=== PATIENT | female | born 1995 | race American Indian/Alaskan Native ===

== ENCOUNTER 2020-07-11 12:39 | Emergency (ER) | payer SELFPAY ==
--- NOTE | 2020-07-11 12:54 | Event Note ---
ED Screening Note ED Screening Note: vag bleed in preg This initial assessment/diagnostic orders/clinical plan/treatment(s) is/are subject to change based on patients health status, clinical progression and re- assessment by fellow clinical providers in the ED. Further treatment and workup at subsequent clinical providers discretion. Patient/guardian urged not to elope from the ED as their condition may be serious if not clinically assessed and managed. Initial orders include: emir erwin
--- NOTE | 2020-07-11 12:57 | Emergency Department Report ---
ED HPI - General Chief complaint: Vaginal Bleeding Stated complaint: 7WKS PREG; VAGINAL BLEEDING Time Seen by Provider: 07/11/20 12:39 Source: patient, RN notes reviewed Limitations: No Limitations - History of Present Illness Initial comments: This is a 25-year-old female nontoxic, well nourished in appearance, no acute signs of distress presents to the ED with c/o of vaginal bleeding x1 day. Patient stated she is about 9 weeks . Patient stated she noticed some spotting this morning. Patient denies any abdominal or pelvic pain. Patient denies any vaginal discharge or foul odor. Patient denies any nausea, vomiting, chest pain, shortness of breathe, fever, chills, headache, stiff neck, numbness, tingling. Patient denies any urinary symptoms. Patient denies any allergies or PMH. MD Complaint: vaginal bleeding -: This morning Radiation: none Severity scale (0 -10): 0 Improves with: none Worsens with: none Associated symptoms: vaginal bleeding. denies: nausea/vomiting, vaginal discharge, abdominal pain, dysuria, headache, vision changes, malaise, dysparuenia, rash, seizure, shortness of breath, syncope, weakness Vaginal bleeding: light :: Yes Number of weeks : 9 Pre-kelly care: none - Related Data Home Medications Medication Instructions Recorded Confirmed Last Taken No Known Home Medications [No 11/22/15 11/22/15 Unknown Reported Home Medications] Allergies Allergy/AdvReac Type Severity Reaction Status Date / Time No Known Allergies Allergy Verified 04/03/13 19:06 ED Review of Systems ROS: Stated complaint: 7WKS PREG; VAGINAL BLEEDING Other details as noted in HPI Comment: All other systems reviewed and negative Constitutional: denies: chills, fever Eyes: denies: eye pain, eye discharge, vision change ENT: denies: ear pain, throat pain Respiratory: denies: cough, shortness of breath, wheezing Cardiovascular: denies: chest pain, palpitations Endocrine: no symptoms reported Gastrointestinal: denies: abdominal pain, nausea, diarrhea Genitourinary: abnormal menses. denies: urgency, dysuria, discharge Musculoskeletal: denies: back pain, joint swelling, arthralgia Skin: denies: rash, lesions Neurological: denies: headache, weakness, paresthesias Psychiatric: denies: anxiety, depression Hematological/Lymphatic: denies: easy bleeding, easy bruising ED Past Medical Hx - Social History Smoking Status: Never Smoker Substance Use Type: None - Medications Home Medications: Home Medications Medication Instructions Recorded Confirmed Last Taken Type No Known Home Medications [No 11/22/15 11/22/15 Unknown History Reported Home Medications] ED Physical Exam - General General appearance: alert, in no apparent distress - Head Head exam: Present: atraumatic, normocephalic - Eye Eye exam: Present: normal appearance - Neck Neck exam: Present: normal inspection, full ROM - Respiratory Respiratory exam: Absent: respiratory distress - Cardiovascular Cardiovascular Exam: Present: regular rate - GI/Abdominal GI/Abdominal exam: Present: soft, normal bowel sounds. Absent: distended, tenderness, guarding, rebound, rigid, diminished bowel sounds - Extremities Exam Extremities exam: Present: normal inspection, full ROM, normal capillary refill - Back Exam Back exam: Present: normal inspection, full ROM - Neurological Exam Neurological exam: Present: alert, oriented X3, normal gait - Psychiatric Psychiatric exam: Present: normal affect, normal mood - Skin Skin exam: Present: warm, dry, intact, normal color. Absent: rash ED Course Vital Signs 07/11/20 12:53 Temperature 99.1 F Pulse Rate 86 Respiratory 16 Rate Blood Pressure 115/78 O2 Sat by Pulse 100 Oximetry - Reevaluation(s) Reevaluation #1: 07/11/20 13:21 Patient is speaking in full sentences with no signs of distress noted. ED Medical Decision Making - Lab Data Result diagrams: 07/11/20 14:26 - Radiology Data Referring Physician: JOHN PAUL SALAZAR Patient Name: ANANDA WARREN Date of : 1995 Sex: Female Report Date: 2020-07-11 Report Status: Finalized [facility] [address] [place] [address] U ltrasound Report Signed Patient: ANANDA WARREN MR#: [id number] : 1995 Acct:[id number] Age/Sex: 25 / F ADM Date: 07/11/20 Loc: ED Attending Dr: Ordering Physician: JOHN PAUL SALAZRA NP Date of Service: 07/11/20 Procedure(s): US OB transvaginal Accession Number(s): [id number] cc: JOHN PAUL SALAZAR NP US OB <= 14 weeks fetus, US OB transvaginal INDICATION / CLINICAL INFORMATION: vaginal bleeding. COMPARISON: None available. FINDINGS: Single, viable intrauterine . heart rate 149. [place]-rump length measures 1.1 cm, corresponding to a gestational age of 7 weeks 1 day. Focal area of subchorionic hemorrhage measures 1 cm. Right ovary is normal. Left ovary contains a 1.7 cm cyst. No free fluid. IMPRESSION: 1. Single, viable 7 week 1 day intrauterine . Signer Name: Gray Kay MD Signed: 07/11/2020 2:44 PM Workstation Name: [id number] Transcribed By: TM Dictated By: Gray Kay MD Electronically Authenticated By: Gray Kay MD Signed Date/Time: 07/11/20 1444 DD/ 1439 TD/TT: Referring Physician: JOHN PAUL SALAZAR Patient Name: ANANDA WARREN Date of : 1995 Sex: Female Report Date: 2020-07-11 Report Status: [place] [address] Ultrasound Report Signed Patient: ANANDA WARREN MR#: [id number] : 1995 Acct:[id number] Age/Sex: 25 / F ADM Date: 07/11/20 Loc: ED Attending Dr: Ordering Physician: JOHN PAUL SALAZAR NP Date of Service: 07/11/20 Procedure(s): US OB <= 14 weeks fetus Accession Number(s): [id number] cc: JOHN PAUL CUENCA NP US OB <= 14 weeks fetus, US OB transvaginal INDICATION / CLINICAL INFORMATION: vaginal bleeding. COMPARISON: None available. FINDINGS: Single, viable intrauterine . heart rate 149. [place]-rump length measures 1.1 cm, corresponding to a gestational age of 7 weeks 1 day. Focal area of subchorionic hemorrhage measures 1 cm. Right ovary is normal. Left ovary contains a 1.7 cm cyst. No free fluid. IMPRESSION: 1. Single, viable 7 week 1 day intrauterine . Signer Name: Gray Kay MD Signed: 07/11/2020 2:44 PM Workstation Name: [id number] Transcribed By: TM Dictated By: Gray Kay MD Electronically Authenticated By: Gray Kay MD Signed Date/Time: 07/11/20 1444 DD/ 1439 TD/TT: - Medical Decision Making This is a 25-year-old female presents with threatened miscarriage. Patient is stable and was examined by me. Normal abdominal exam. US OB obtained and dictated by the radiologist. Ua obtained. Quantative serum test obtained. Patient notified of the US report with no questions noted by the patient. Patient was instructed f/u with [facility] in 3-5 days. RH factor positive. Labs within normal limits. At time of discharge, the patient does not seem toxic or ill in appearance. No acute signs of distress noted. Patient agrees to discharge treatment plan of care. No further questions noted by the patient. Critical care attestation.: If time is entered above; I have spent that time in minutes in the direct care of this critically ill patient, excluding procedure time. ED Disposition Clinical Impression: Threatened miscarriage Disposition: DC-01 TO HOME OR SELFCARE Is pt being admited?: No Does the pt Need Aspirin: No Condition: Stable Instructions: Threatened Miscarriage Additional Instructions: Follow-up with a [facility] doctor in 3-5 days or if symptoms worsen and continue return to emergency room as soon as possible. Referrals: PRIMARY CAREMD [Primary Care Provider] - 3-5 Days [facility] [Provider Group] - 3-5 Days [facility] [Provider Group] - 3-5 Days Forms: Work/School Release Form(ED) Time of Disposition: 16:16
[2020-07-11 12:59] VITALS: BP 115/78
[2020-07-11 14:47] LABS: Basophils % (Auto) 0.2 % (0.0-1.8); Eosinophils # (Auto) 0.1 K/mm3 (0.0-0.4); Eosinophils % (Auto) 0.8 % (0.0-4.3); Hemoglobin 13.3 gm/dl (10.1-14.3); Lymphocytes # (Auto) 2.1 K/mm3 (1.2-5.4); Lymphocytes % (Auto) 24.6 % (13.4-35.0); Mean Corpuscular HGB Conc 34 % (30-34); Mean Corpuscular Volume 86 fl (79-97); Monocytes # (Auto) 0.5 K/mm3 (0.0-0.8); Monocytes % (Auto) 6.3 % (0.0-7.3); Platelet Count 256 K/mm3 (140-440); Red Blood Count 4.55 M/mm3 (3.65-5.03); Red Cell Distribution Width 13.1 % (13.2-15.2)
--- NOTE | 2020-07-11 14:49 | Ultrasound Report ---
US OB <= 14 weeks fetus, US OB transvaginal INDICATION / CLINICAL INFORMATION: vaginal bleeding. COMPARISON: None available. FINDINGS: Single, viable intrauterine . heart rate 149. Serena-rump length measures 1.1 cm, corresponding to a gestational age of 7 weeks 1 day. Focal area of subchorionic hemorrhage measures 1 cm. Right ovary is normal. Left ovary contains a 1.7 cm cyst. No free fluid. IMPRESSION: 1. Single, viable 7 week 1 day intrauterine . Signer Name: Gray Kay MD Signed: 07/11/2020 2:44 PM Workstation Name: [id number]
[2020-07-11 16:07] LABS: Bilirubin,Urine NEG (Negative); Blood,Urine NEG (Negative); Color,Urine Yellow (Yellow); Protein,Urine <15 mg/dL mg/dL (Negative); RBC,Urine < 1.0 /HPF (0.0-6.0); Urobilinogen,Urine < 2.0 mg/dL (<2.0); WBC,Urine < 1.0 /HPF (0.0-6.0)
== END 2020-07-11 16:00 | disposition home or self-care (01) ==
LOC: ED 12:39
DX: O20.0 Threatened abortion (principal); Z3A.01 Less than 8 weeks gestation of pregnancy
CPT/HCPCS: 36415; 76801; 76817; 81001; 84702; 85025; 86900; 86901; 99283

== ENCOUNTER 2020-07-31 07:38 | Emergency (ER) | payer MEDICAID ==
[2020-07-31 07:55] VITALS: BP 112/55
--- NOTE | 2020-07-31 08:04 | Emergency Department Report ---
Chief Complaint: Headache Stated Complaint: HEADACHE X3DAYS/10WKS Time Seen by Provider: 07/31/20 07:56 - HPI History of Present Illness: g1 here 06/10 -see EMR did not see ob co headache off and on for days took nothing at home- was afraid to because of fetus first preg 10 w gravid no other symptoms ambulatory and non ill appearing in triage - ROS Review of Systems: headache with no n/v/d no weakness no cp no sob no vag bleed no dc - Exam Vital Signs: Vital Signs 07/31/20 07:50 Temperature 99.1 F Pulse Rate 95 H Respiratory 16 Rate Blood Pressure 112/55 O2 Sat by Pulse 100 Oximetry HR by [id number] Physical Exam: a/o ambulatory no focal def bp normal nad s1s2 abd snt MSE screening note: Focused history and physical exam performed. Due to findings the following was ordered: Patient discussed with doctor:: KIKA CROSS ED Disposition for MSE Clinical Impression: Headache Disposition: MED SCREENING EXAM-LEFT Is pt being admited?: No Does the pt Need Aspirin: No Condition: Stable Instructions: First Trimester of , Wnes-ym-Mhof, First Trimester of Additional Instructions: tylenol is ok for you to take for pain follow up with your obgyn next week as scheduled Referrals: CUBA OLIVO JR, MD [Staff Physician] - 3-5 Days Forms: Work/School Release Form(ED) Time of Disposition: 08:00
== END 2020-07-31 08:17 | disposition left against medical advice (07) ==
LOC: ED 07:38
DX: O26.891 Other specified pregnancy related conditions, first trimester (principal); R51.9 Headache, unspecified; Z3A.10 10 weeks gestation of pregnancy; Z53.21 Procedure and treatment not carried out due to patient leaving prior to being seen by health care provider

== ENCOUNTER 2021-01-06 10:05 | Outpatient (CLI) | payer MEDICAID ==
[2021-01-06] MEDS ORDERED: LACTATED RINGERS 1,000 ML IV ONE (10:28)
[2021-01-06 10:35] VITALS: BP 119/62
[2021-01-06 10:43] LABS: Bilirubin,Urine NEG (Negative); Blood,Urine NEG (Negative); Color,Urine Yellow (Yellow); Mucus,Urine FEW /HPF; Protein,Urine <15 mg/dL mg/dL (Negative); Urobilinogen,Urine < 2.0 mg/dL (<2.0)
== END 2021-01-06 12:05 | disposition home or self-care (01) ==
LOC: TRG 10:05 → APU 10:07 → TRG 12:05
PROVIDERS: ATTEND Obstetrics & Gynecology
DX: O26.893 Other specified pregnancy related conditions, third trimester (principal); N89.8 Other specified noninflammatory disorders of vagina; Z3A.33 33 weeks gestation of pregnancy
CPT/HCPCS: 59025; 81001; 96360; J7120

== ENCOUNTER 2021-02-19 15:35 | Inpatient (IN) | payer MEDICAID ==
[2021-02-19] MEDS ORDERED: METHYLERGONOVINE MALEATE 0.2 MG/ML VIAL IM PRN (19:47)
[2021-02-19] MEDS ORDERED: MINERAL OIL 30 ML ORAL LIQD PO PRN (19:47)
[2021-02-19] MEDS ORDERED: ePHEDrine SULFATE 50 MG/1 ML INJ IV PRN (19:47)
[2021-02-19] MEDS ORDERED: CARBOPROST TROMETHAMINE 250 MCG/1 ML INJ IM PRN (19:47)
[2021-02-19] MEDS ORDERED: miSOPROStol 200 MCG TAB PR PRN (19:47)
[2021-02-19] MEDS ORDERED: OXYTOCIN 10 UNIT/1 ML INJ IM PRN (19:47)
[2021-02-19] MEDS ORDERED: fentaNYL 100 MCG/2 ML INJ IV PRN (19:47)
[2021-02-19] MEDS ORDERED: TERBUTALINE 1 MG/1 ML INJ SUB-Q PRN (19:47)
[2021-02-19] MEDS ORDERED: LIDOCAINE (2%) 20 MG/1 ML VIAL 20 ML MDV INFILTRATI ONE (19:47)
[2021-02-19] MEDS ORDERED: LOPERAMIDE 2 MG CAP PO PRN (19:47)
[2021-02-19] MEDS ORDERED: NalbUPHINE 10 MG/1 ML INJ IV PRN (19:47)
[2021-02-19] MEDS ORDERED: BUTORPHANOL 2 MG/1 ML INJ IV PRN (19:47)
--- NOTE | 2021-02-19 19:55 | History and Physical Report ---
History of Present Illness Date of examination: 02/19/21 Chief complaint: Induction of labor for IUGR History of present illness: 35-year-old G1, P0 at 39+3/7 weeks by LNMP consistent with second trimester US. Admission for induction of labor. 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 Past History Past Surgical History: no surgical history [employer] History: gonorrhea Family/Genetic History: none Social history: no significant social history - Obstetrical History Expected Date of Delivery: 02/23/21 Actual Gestation: 39 Week(s) 4 Day(s) : 1 Medications and Allergies Allergies Allergy/AdvReac Type Severity Reaction Status Date / Time No Known Allergies Allergy Verified 04/03/13 19:06 Home Medications Medication Instructions Recorded Confirmed Last Taken Type No Known Home Medications [No 11/22/15 11/22/15 Unknown History Reported Home Medications] Active Meds: Active Medications Acetaminophen (Acetaminophen 325 Mg Tab) 650 mg PO Q4H PRN PRN Reason: Pain, Mild (1-3) Butorphanol Tartrate (Butorphanol 2 Mg/1 Ml Inj) 2 mg IV Q2H PRN PRN Reason: Pain , Severe (7-10) Carboprost Tromethamine (Carboprost Tromethamine 250 Mcg/1 Ml Inj) 250 mcg IM ONCE PRN PRN Reason: Uterine Bleeding Dinoprostone (Dinoprostone 10 Mg Vag Supp) 10 mg VG ONCE ONE Stop: 02/19/21 19:38 Ephedrine Sulfate (Ephedrine Sulfate 50 Mg/1 Ml Inj) 10 mg IV Q2M PRN PRN Reason: Hypotension Fentanyl (Fentanyl 100 Mcg/2 Ml Inj) 100 mcg IV Q2H PRN PRN Reason: Pain,Severe (7-10) LABOR PAIN Lactated Ringer's (Lactated Ringers) 1,000 mls @ 125 mls/hr IV DIRECT ERROL Oxytocin/Sodium Chloride (Pitocin/Ns 30 Unit/500ml) 30 units in 500 mls @ 40 mls/hr IV TITR ERROL; Protocol Lidocaine (Lidocaine (2%) 20 Mg/1 Ml Vial 20 Ml Mdv) 20 ml INFILTRATI ONCE ONE Stop: 02/19/21 19:48 Loperamide HCl (Loperamide 2 Mg Cap) 2 mg PO ONCE PRN PRN Reason: give with Hemabate Methylergonovine Maleate (Methylergonovine Maleate 0.2 Mg/Ml Vial) 0.2 mg IM ONCE PRN PRN Reason: Uterine Bleeding Mineral Oil (Mineral Oil 30 Ml Oral Liqd) 30 ml PO QHS PRN PRN Reason: Constipation Misoprostol (Misoprostol 200 Mcg Tab) 800 mcg [place] ONCE PRN PRN Reason: Uterine Bleeding Nalbuphine HCl (Nalbuphine 10 Mg/1 Ml Inj) 10 mg IV Q2H PRN PRN Reason: Pain, Moderate (4-6) Oxytocin (Oxytocin 10 Unit/1 Ml Inj) 10 unit IM ONCE PRN PRN Reason: Uterine Bleeding Terbutaline Sulfate (Terbutaline 1 Mg/1 Ml Inj) 0.25 mg SUB-Q ONCE PRN PRN Reason: Hyperstimulation/Hypertonicity Review of Systems All systems: negative (no OB complaints: GFM, no VB or LOF) - Vital Signs Vital signs: Vital Signs Pulse Pulse Ox 81 80 L 02/19/21 17:05 02/19/21 17:05 Temp Pulse Resp BP Pulse Ox 99.3 F 112 H 20 113/63 100 02/19/21 19:15 02/19/21 19:47 02/19/21 19:15 02/19/21 19:08 02/19/21 19:47 - Physical Exam Breasts: Positive: deferred Cardiovascular: Regular rate Lungs: Positive: Clear to auscultation Abdomen: Positive: normal appearance, soft, normal bowel sounds Genitourinary (Female): Positive: normal external genitalia Vagina: Positive: normal moisture Anus/Rectum: Positive: normal perianal skin Deep Tendon Reflex Grade: Normal +2 - Obstetrical FHR: category 1 Cervical Dilatation: 0 Results Result Diagrams: 02/20/21 00:35 All other labs normal. Assessment and Plan admission [id number] PO Q6 hours x 4 doses, then cervidil if needed for sequential cervical ripening. CFM NICU present at delivery Pain meds prn informed consent Maternal/ well being reassuring overall. Barrie Hannah MD
[2021-02-19] MEDS: LACTATED RINGERS 1,000 ML IV SCH (20:08)
--- NOTE | 2021-02-19 21:14 | Ultrasound Report ---
Limited OB ultrasound INDICATION: Well-being FINDINGS: There is a single live intrauterine in cephalic position. heart rate is 1 6 8 bpm. Grade 2 placenta. Placenta is fundal. IMPRESSION: Single live intrauterine with normal heart Signer Name: Junior Flynn MD Signed: 02/19/2021 9:09 PM Workstation Name: [id number]
[2021-02-19] MEDS ORDERED: DINOPROSTONE 10 MG VAG SUPP VG ONE (21:37)
[2021-02-19] MEDS: miSOPROStol 25 MCG TAB PO SCH (22:47)
[2021-02-20] MEDS: ACETAMINOPHEN 325 MG TAB PO PRN (00:10)
[2021-02-20 01:13] LABS: Hematocrit 36.8 % (30.3-42.9); Hemoglobin 12.5 gm/dl (10.1-14.3); Mean Corpuscular HGB Conc 34 % (30-34); Mean Corpuscular Volume 86 fl (79-97); Platelet Count 205 K/mm3 (140-440); Red Blood Count 4.26 M/mm3 (3.65-5.03); Red Cell Distribution Width 14.3 % (13.2-15.2)
[2021-02-20] MEDS ORDERED: miSOPROStol 100 MCG TAB PO ONE (05:00)
[2021-02-20] MEDS: miSOPROStol 25 MCG TAB PO SCH (05:17)
[2021-02-20] MEDS: LACTATED RINGERS 1,000 ML IV SCH ×2 (10:22→15:27)
[2021-02-20] MEDS: OXYTOCIN DRIP 30 UNITS/500 ML BAG IV SCH ×2 (11:27→11:42)
--- NOTE | 2021-02-20 11:28 | Progress Note ---
Assessment and Plan A: IUP@ 39.4 wks IOL for IUGR and triple X syndrome P: Continuos monitoring Stop Cytotec and start Pitocin in 4 hrs Anticipate Subjective - Subjective Date of service: 02/20/21 Principal diagnosis: IUP2 39.4 wks Patient reports: movement normal, contractions Objective - Vital Signs Vital Signs: Vital Signs - 12hr 02/19/21 02/19/21 02/19/21 23:26 23:31 23:36 Temperature Pulse Rate 96 H 87 88 Blood Pressure O2 Sat by Pulse 98 98 98 Oximetry O2 Sat by Pulse Oximetry [ Bilateral Throughout] 02/19/21 02/19/21 02/20/21 23:41 23:59 00:00 Temperature 97.6 F Pulse Rate 92 H 106 H Blood Pressure O2 Sat by Pulse 98 99 Oximetry O2 Sat by Pulse Oximetry [ Bilateral Throughout] 02/20/21 02/20/21 02/20/21 00:05 00:10 00:14 Temperature Pulse Rate 87 102 H 90 Blood Pressure 119/71 O2 Sat by Pulse 97 98 Oximetry O2 Sat by Pulse Oximetry [ Bilateral Throughout] 02/20/21 02/20/21 02/20/21 00:15 00:20 00:25 Temperature Pulse Rate 90 89 80 Blood Pressure O2 Sat by Pulse 98 98 99 Oximetry O2 Sat by Pulse Oximetry [ Bilateral Throughout] 02/20/21 02/20/21 02/20/21 00:30 00:35 00:40 Temperature Pulse Rate 83 97 H 84 Blood Pressure O2 Sat by Pulse 100 100 99 Oximetry O2 Sat by Pulse Oximetry [ Bilateral Throughout] 02/20/21 02/20/21 02/20/21 00:45 00:50 00:55 Temperature Pulse Rate 84 96 H 87 Blood Pressure O2 Sat by Pulse 99 99 98 Oximetry O2 Sat by Pulse Oximetry [ Bilateral Throughout] 02/20/21 02/20/21 02/20/21 01:00 01:05 01:10 Temperature Pulse Rate 106 H 102 H 87 Blood Pressure O2 Sat by Pulse 99 98 99 Oximetry O2 Sat by Pulse Oximetry [ Bilateral Throughout] 02/20/21 02/20/21 02/20/21 01:15 01:20 01:25 Temperature Pulse Rate 82 80 84 Blood Pressure O2 Sat by Pulse 100 100 99 Oximetry O2 Sat by Pulse Oximetry [ Bilateral Throughout] 02/20/21 02/20/21 02/20/21 01:30 01:35 01:40 Temperature Pulse Rate 79 82 82 Blood Pressure O2 Sat by Pulse 97 97 97 Oximetry O2 Sat by Pulse Oximetry [ Bilateral Throughout] 02/20/21 02/20/21 02/20/21 01:45 01:50 01:55 Temperature Pulse Rate 87 78 86 Blood Pressure O2 Sat by Pulse 97 97 97 Oximetry O2 Sat by Pulse Oximetry [ Bilateral Throughout] 02/20/21 02/20/21 02/20/21 02:00 02:05 02:10 Temperature Pulse Rate 91 H 86 92 H Blood Pressure O2 Sat by Pulse 97 96 96 Oximetry O2 Sat by Pulse Oximetry [ Bilateral Throughout] 02/20/21 02/20/21 02/20/21 02:15 02:20 02:25 Temperature Pulse Rate 89 91 H 89 Blood Pressure O2 Sat by Pulse 97 96 96 Oximetry O2 Sat by Pulse Oximetry [ Bilateral Throughout] 02/20/21 02/20/21 02/20/21 02:30 02:35 02:40 Temperature Pulse Rate 102 H 90 104 H Blood Pressure O2 Sat by Pulse 98 96 98 Oximetry O2 Sat by Pulse Oximetry [ Bilateral Throughout] 02/20/21 02/20/21 02/20/21 02:45 02:48 02:51 Temperature Pulse Rate 96 H 72 76 Blood Pressure O2 Sat by Pulse 98 68 L 95 Oximetry O2 Sat by Pulse Oximetry [ Bilateral Throughout] 02/20/21 02/20/21 02/20/21 03:01 03:06 03:11 Temperature Pulse Rate 61 113 H 97 H Blood Pressure O2 Sat by Pulse 100 99 99 Oximetry O2 Sat by Pulse Oximetry [ Bilateral Throughout] 02/20/21 02/20/21 02/20/21 03:16 03:21 03:26 Temperature Pulse Rate 95 H 90 95 H Blood Pressure O2 Sat by Pulse 100 99 99 Oximetry O2 Sat by Pulse Oximetry [ Bilateral Throughout] 02/20/21 02/20/21 02/20/21 03:31 03:36 03:41 Temperature Pulse Rate 78 82 85 Blood Pressure O2 Sat by Pulse 99 98 98 Oximetry O2 Sat by Pulse Oximetry [ Bilateral Throughout] 02/20/21 02/20/21 02/20/21 03:46 03:51 03:56 Temperature Pulse Rate 80 86 86 Blood Pressure O2 Sat by Pulse 99 99 98 Oximetry O2 Sat by Pulse Oximetry [ Bilateral Throughout] 02/20/21 02/20/21 02/20/21 04:01 04:06 04:11 Temperature Pulse Rate 90 105 H 90 Blood Pressure O2 Sat by Pulse 98 98 99 Oximetry O2 Sat by Pulse Oximetry [ Bilateral Throughout] 02/20/21 02/20/21 02/20/21 04:16 04:21 04:26 Temperature Pulse Rate 88 100 H 87 Blood Pressure O2 Sat by Pulse 99 99 99 Oximetry O2 Sat by Pulse Oximetry [ Bilateral Throughout] 02/20/21 02/20/21 02/20/21 04:31 04:36 04:41 Temperature Pulse Rate 100 H 95 H 91 H Blood Pressure O2 Sat by Pulse 98 100 97 Oximetry O2 Sat by Pulse Oximetry [ Bilateral Throughout] 02/20/21 02/20/21 02/20/21 04:46 04:51 04:56 Temperature Pulse Rate 100 H 91 H 90 Blood Pressure O2 Sat by Pulse 98 98 97 Oximetry O2 Sat by Pulse Oximetry [ Bilateral Throughout] 02/20/21 02/20/21 02/20/21 05:00 05:01 05:05 Temperature 97.8 F Pulse Rate 89 83 Blood Pressure 118/59 O2 Sat by Pulse 98 Oximetry O2 Sat by Pulse Oximetry [ Bilateral Throughout] 02/20/21 02/20/21 02/20/21 05:24 05:29 05:34 Temperature Pulse Rate 89 89 82 Blood Pressure O2 Sat by Pulse 99 97 98 Oximetry O2 Sat by Pulse Oximetry [ Bilateral Throughout] 02/20/21 02/20/21 02/20/21 05:39 05:44 05:49 Temperature Pulse Rate 86 80 88 Blood Pressure O2 Sat by Pulse 99 99 97 Oximetry O2 Sat by Pulse Oximetry [ Bilateral Throughout] 02/20/21 02/20/21 02/20/21 05:54 05:59 06:04 Temperature Pulse Rate 88 113 H 82 Blood Pressure O2 Sat by Pulse 98 100 99 Oximetry O2 Sat by Pulse Oximetry [ Bilateral Throughout] 02/20/21 02/20/21 02/20/21 06:09 06:14 06:19 Temperature Pulse Rate 88 81 90 Blood Pressure O2 Sat by Pulse 99 100 100 Oximetry O2 Sat by Pulse Oximetry [ Bilateral Throughout] 02/20/21 02/20/21 02/20/21 06:24 06:29 06:34 Temperature Pulse Rate 85 85 85 Blood Pressure O2 Sat by Pulse 99 100 99 Oximetry O2 Sat by Pulse Oximetry [ Bilateral Throughout] 02/20/21 02/20/21 02/20/21 06:39 06:44 06:49 Temperature Pulse Rate 86 96 H 89 Blood Pressure O2 Sat by Pulse 98 99 99 Oximetry O2 Sat by Pulse Oximetry [ Bilateral Throughout] 02/20/21 02/20/21 02/20/21 06:54 06:59 07:04 Temperature Pulse Rate 90 99 H 78 Blood Pressure O2 Sat by Pulse 99 100 98 Oximetry O2 Sat by Pulse Oximetry [ Bilateral Throughout] 02/20/21 02/20/21 02/20/21 07:09 07:12 07:14 Temperature 99 F Pulse Rate 79 87 99 H Blood Pressure O2 Sat by Pulse 100 99 98 Oximetry O2 Sat by Pulse Oximetry [ Bilateral Throughout] 02/20/21 02/20/21 02/20/21 07:15 07:19 07:24 Temperature Pulse Rate 81 86 Blood Pressure O2 Sat by Pulse 100 100 Oximetry O2 Sat by Pulse 100 Oximetry [ Bilateral Throughout] 02/20/21 02/20/21 02/20/21 07:29 07:34 07:36 Temperature Pulse Rate 88 108 H 84 Blood Pressure 124/74 O2 Sat by Pulse 97 97 Oximetry O2 Sat by Pulse Oximetry [ Bilateral Throughout] 02/20/21 02/20/21 02/20/21 07:39 07:44 07:49 Temperature Pulse Rate 96 H 93 H 88 Blood Pressure O2 Sat by Pulse 98 100 98 Oximetry O2 Sat by Pulse Oximetry [ Bilateral Throughout] 02/20/21 02/20/21 02/20/21 07:54 07:59 08:04 Temperature Pulse Rate 92 H 105 H 94 H Blood Pressure O2 Sat by Pulse 100 99 100 Oximetry O2 Sat by Pulse Oximetry [ Bilateral Throughout] 02/20/21 02/20/21 02/20/21 08:09 08:42 08:47 Temperature Pulse Rate 104 H 90 98 H Blood Pressure O2 Sat by Pulse 99 99 99 Oximetry O2 Sat by Pulse Oximetry [ Bilateral Throughout] 02/20/21 02/20/21 02/20/21 08:52 08:57 09:02 Temperature Pulse Rate 92 H 98 H 89 Blood Pressure O2 Sat by Pulse 98 97 97 Oximetry O2 Sat by Pulse Oximetry [ Bilateral Throughout] 02/20/21 02/20/21 02/20/21 09:07 09:12 09:17 Temperature Pulse Rate 102 H 91 H 106 H Blood Pressure O2 Sat by Pulse 97 97 97 Oximetry O2 Sat by Pulse Oximetry [ Bilateral Throughout] 02/20/21 02/20/21 02/20/21 09:22 09:27 09:32 Temperature Pulse Rate 88 99 H 90 Blood Pressure O2 Sat by Pulse 98 99 97 Oximetry O2 Sat by Pulse Oximetry [ Bilateral Throughout] 02/20/21 02/20/21 02/20/21 09:37 09:42 09:43 Temperature Pulse Rate 83 95 H 88 Blood Pressure 109/61 O2 Sat by Pulse 97 97 Oximetry O2 Sat by Pulse Oximetry [ Bilateral Throughout] 02/20/21 02/20/21 02/20/21 09:47 09:52 09:57 Temperature Pulse Rate 109 H 100 H 104 H Blood Pressure O2 Sat by Pulse 100 99 99 Oximetry O2 Sat by Pulse Oximetry [ Bilateral Throughout] 02/20/21 02/20/21 02/20/21 10:02 10:07 10:12 Temperature Pulse Rate 101 H 100 H 108 H Blood Pressure O2 Sat by Pulse 97 98 98 Oximetry O2 Sat by Pulse Oximetry [ Bilateral Throughout] 02/20/21 02/20/21 02/20/21 10:17 10:22 10:27 Temperature Pulse Rate 97 H 101 H 109 H Blood Pressure O2 Sat by Pulse 99 99 98 Oximetry O2 Sat by Pulse Oximetry [ Bilateral Throughout] 02/20/21 02/20/21 02/20/21 10:32 10:37 10:42 Temperature Pulse Rate 94 H 96 H 98 H Blood Pressure O2 Sat by Pulse 99 100 99 Oximetry O2 Sat by Pulse Oximetry [ Bilateral Throughout] 02/20/21 02/20/21 02/20/21 10:44 10:47 10:52 Temperature Pulse Rate 96 H 97 H 93 H Blood Pressure 127/101 O2 Sat by Pulse 99 100 Oximetry O2 Sat by Pulse Oximetry [ Bilateral Throughout] 02/20/21 02/20/21 02/20/21 10:57 11:02 11:07 Temperature Pulse Rate 99 H 101 H 102 H Blood Pressure O2 Sat by Pulse 100 99 100 Oximetry O2 Sat by Pulse Oximetry [ Bilateral Throughout] 02/20/21 11:17 Temperature Pulse Rate 100 H Blood Pressure O2 Sat by Pulse 80 L Oximetry O2 Sat by Pulse Oximetry [ Bilateral Throughout] - Exam Breasts: normal Abdomen: Present: normal appearance, soft, normal bowel sounds Vulva: both: normal Uterus: Present: normal FHR: auscultation normal, category 1 Uterine Contraction Monitor Mode: External Cervical Dilatation: 3 Cervical Effacement Percentage: 50 station: -3 Uterine Contraction Pattern: Irregular Uterine Tone Measurement Phase: Resting Uterine Contraction Intensity: Mild Extremities: normal - Labs Labs: Laboratory Results - last 24 hr 02/20/21 02/20/21 00:35 00:35 WBC 9.4 RBC 4.26 Hgb 12.5 Hct 36.8 MCV 86 MCH 29 MCHC 34 RDW 14.3 Plt Count 205 Blood Type AB POSITIVE Antibody Screen Negative
[2021-02-20] MEDS ORDERED: ONDANSETRON 4 MG/2 ML INJ IV PRN (13:50)
[2021-02-20] MEDS ORDERED: ONDANSETRON 4 MG/2 ML INJ ONE (13:52)
--- NOTE | 2021-02-20 15:45 | Anesthesia Consultation ---
Anesthesia Consult and Med Hx Date of service: 02/20/21 - Airway Anesthetic Teeth Evaluation: Good ROM Head & Neck: Adequate Mental/Hyoid Distance: Adequate Mallampati Class: Class II Intubation Access Assessment: Probably Good - Pulmonary Exam CTA: Yes - Cardiac Exam Cardiac Exam: RRR - Pre-Operative Health Status ASA Pre-Surgery Classification: ASA2 Proposed Anesthetic Plan: Epidural - Pulmonary Hx Asthma: No - Cardiovascular System Hx Hypertension: No - Central Nervous System Hx Seizures: No Hx Psychiatric Problems: No - Endocrine Hx Renal Disease: No Hx Hypothyroidism: No Hx Hyperthyroidism: No - Hematic Hx Anemia: No Hx Sickle Cell Disease: No - Other Systems Hx Alcohol Use: No
[2021-02-20] MEDS ORDERED: ePHEDrine SULFATE 50 MG/1 ML INJ IV PRN (16:00)
[2021-02-20] MEDS ORDERED: NALOXONE 2 MG/2 ML INJ IV PRN (16:00)
--- NOTE | 2021-02-20 16:04 | Progress Note ---
Labor Epidural - Labor Epidural Start Time: 15:45 Stop Time: 16:05 Performed by:: ROMEL HAWK Procedure: Patient is requesting epidural for labor pain. H&P, and labs reviewed. Procedure explained, questions answered, consent obtained. Patient in sitting position with blood pressure cuff and pulse ox on and working. Timeout performed immediately before start of procedure. Sterile chlorahexadine 0.5% prep/drape. 3 mL 1% lidocaine skin wheal at L[3]-L[4]. 18-gauge OnTheRoadtead epidural needle advanced to [id number] with saline at [7] cm. 27G spinal needle inserted through epidural needle, positive csf negative blood dexmedetomidine 5 mcg administered and needle removed. Epidural catheter advanced to [12] cm, negative aspiration for blood and csf, negative test dose 3 ml 1.5% lidocaine with epinephrine. Sterile steri-strips and tegaderm applied, followed by tape reinforcement. Patient tolerated procedure well. Navi CHAVEZ
[2021-02-20] MEDS: fentaNYL-BUPIV 2 MCG/ML-0.125% 200 MCG/100 ML BAG EPIDURAL SCH ×2 (16:22→23:56)
[2021-02-20] MEDS ORDERED: CALCIUM CARBONATE 500 MG TAB CHEW PO ONE (22:00)
--- NOTE | 2021-02-20 22:12 | Event Note ---
Date: 02/20/21 Pt evaluated and FHR category I with inadequate contractions, 170 mdv and pit at 11mu/min. Pelvic 5/80/-2 with no head descent in more that 8hrs. Discussed with pt alternate route of delivery with section (and risks, benefits and alternatives discussed) when ctx adequate for 4hrs. Pt declines c/section. Pt currently afebrile. Will augment with IV pitocin to make contractions adequate. All questions encouraged and answered.
[2021-02-20] MEDS ORDERED: LIDOCAINE (2%) 20 MG/1 ML VIAL 20 ML MDV INFILTRATI ONE (23:11)
[2021-02-21] MEDS ORDERED: AMPICILLIN/NS 2 GM/100 ML 2 GM/100 ML BAG IV ONE (00:53)
[2021-02-21] MEDS ORDERED: BUPIVACAINE/PF (0.25%) 2.5 MG/ML 10 ML VIAL INFILTRATI ONE (01:44)
[2021-02-21] MEDS ORDERED: GENTAMICIN/NS 100 MG/100 ML 100 MG/100 ML BAG IV ONE (01:54)
[2021-02-21] MEDS: ACETAMINOPHEN 325 MG TAB PO PRN ×2 (02:35→08:04)
[2021-02-21] MEDS: LACTATED RINGERS 1,000 ML IV SCH ×2 (03:07→10:02)
[2021-02-21] MEDS ORDERED: BICITRA ORAL LIQD 30ML PO ONE (03:20)
[2021-02-21] MEDS ORDERED: FAMOTIDINE 20 MG/2 ML INJ IV ONE (03:20)
[2021-02-21] MEDS ORDERED: METOCLOPRAMIDE 10 MG/2 ML INJ IV NR (03:21)
[2021-02-21] MEDS ORDERED: ceFAZolin/STERILE WATER 2 GM/20 ML SYRINGE IV NR (03:21)
[2021-02-21] MEDS ORDERED: ceFAZolin/STERILE WATER 2 GM/20 ML SYRINGE IV ONE (03:43)
[2021-02-21] MEDS ORDERED: SODIUM BICARB 8.4% 50 MEQ/50 ML VIAL IV ONE (04:04)
[2021-02-21] MEDS ORDERED: ONDANSETRON 4 MG/2 ML INJ ONE ×2 (04:04)
[2021-02-21] MEDS ORDERED: LIDOCAINE 2%/EPINEPHRINE 1:200,000 VIAL (20 ML) INFILTRATI ONE (04:04)
[2021-02-21] MEDS ORDERED: AMPICILLIN/NS 1 GM/50 ML 1 GM/50 ML BAG IV SCH (05:00)
[2021-02-21] MEDS ORDERED: BUPIVACAINE/PF (0.25%) 2.5 MG/ML 30 ML VIAL INFILTRATI ONE (05:51)
[2021-02-21] MEDS ORDERED: dexAMETHasone 20 MG/5 ML VIAL ONE (05:51)
[2021-02-21] MEDS ORDERED: LACTATED RINGERS 1,000 ML ONE (05:51)
--- NOTE | 2021-02-21 06:29 | Progress Note ---
Regional Anesthesia Block - Regional Anesthesia Block Start Time: 06:15 Stop Time: 06:20 Performed By:: ROMEL HAWK Procedure: U/S guided bilateral tap block performed for post-operative pain requested by Dr. Sprague. H&P & labs reviewed. Procedure explained, questions answered, consent obtained. Patient in the supine position with ekg, blood pressure cuff and pulse ox on and working in PACU. Timeout performed immediately before start of procedure. Probe placed in the mid-axillary line and the external oblique, internal oblique, and transverse abdominus muscles identified. Skin was cleansed with chlorahexadine 0.5% and allowed to dry. A 4" 20 G Ocampo echogenic needle was advanced in plane until the tip was in the fascial plane between the internal oblique and the transverse abdominus. After negative aspiration 30 ml/side of [60 ml 0.25% Bupivacaine], [10 mg dexamethasone] was injected in 5 ml increments with negative aspiration in between. Patient tolerated procedure well.
--- NOTE | 2021-02-21 06:53 | Event Note ---
Date: 02/21/21 late entry; nurse called me with tacchycardia in the 180-200 and pt on amp and gent and given tylenol. Pelvic /2. Discussed the need for section and risks, benefits and alternatives again discussed. All questions encouraged and answered. Pt signed consents reluctantly because she really wanted a vaginal delivery but has realized the baby's heart is too high and she needs to be delivered. NICU and rubber thread spooler notified. Pt prepped for OR procedure.
[2021-02-21] MEDS ORDERED: OXYTOCIN DRIP 30 UNITS/500 ML BAG IV SCH (07:00)
--- NOTE | 2021-02-21 07:31 | Procedure Note ---
OB Delivery Note - Delivery Date of Delivery: 02/21/21 Surgeon: DINORA YODER Estimated blood loss: other (2214g) - Section Preop diagnosis: arrest of dilation, nonreassuring FHR tracing, other (chorioamnionitis) Postop diagnosis: same section procedure: primary low transverse Disposition: PACU Complications: intra-op hemorrhage, uterine atony Narrative: Date: 02/21/21 Surgeon: Dinora Yoder MD Preop Dx: Term at 39.5wks, Failed induction, Arrest of dilatation, category III FHR, Chorioamnionitis with lower pelvis edema and hematuria Postop Dx: none Procedure : Emergent Primary low transverse section with confirmation of no bladder injury Anesthesia: Epidural Intake: 2000cc Output: 200cc clear at the end of the procedure when milk cleared EBL: 2214cc by QBL per nurse report and I agree it was over 1500cc After the risks, benefits and alternatives of procedure discussed, patient signed consents and was taken to the operating room. Pt already had epidural anesthesia. After same was adequate, patient was prepped and draped in the usual sterile fashion. Franklin catheter was already in place and draining blood tinged urine. Pt was given prophylactic antibiotic per protocol and time out was done Pfannenstiel skin incision was made and taken sharply to the fascia and the incision extended using electrocautery. Superior edge of the fascia was grasped with tatiana clamps and the rectus muscle using blunt dissection and also using electrocautery. Lower portion of the fascia also with electrocautery. Rectus muscle in the midline and Peritoneal cavity entered bluntly and extended with good visualization of the bladder. The bladder flap was created sharply using metzenbaum scissors and anmol retractor placed without difficulty. Lower uterine segment then entered transversely and amniotic sac entered using allys clamps. Uterine incision extended manually. delivered vertex and bulb suctioned, cord clamped and baby handed to waiting pediatricians. Placenta then delivered completely and uterine cavity cleared of all clots and debri with heavy bleeding and difficulty less than 1cm of adherent lower uterine segment friable tissue. The uterus was exteriorized and very boggy and closed in 2 layers using 0-monocryl] suture in a running locked fashion and then an additional layer of imbrication suture. Additional figure of eight suture placed to left corner of uterine incision and centrally and pt given methergine IM by anesthesia with good response. Surgicel powder placed. Good hemostasis noted. The gutters were cleared of clots and debri and clear yellow fluid noted to lower pelvis and bladder edema noted. Decision made by me to place 300cc sterile milk and same done by the circulating nurse and extravasation of milk noted in the peritoneum. Pt reassured no bladder injury. The anmol retractor was removed without difficulty and hemostasis now excellent. The anterior peritoneum closed using 3-0 vicryl suture in a continuous fashion and the rectus muscle reapproximated using 0-vicryl suture in a running fashion. Rectus fascia closed with 0-vicryl suture in a continuous fashion and subcutaneous tissue copiously irrigated with normal saline and re-approximated using 3-0 vicryl suture. Excellent hemostasis remains. The skin was closed with 4-0 monocryl suture and steristrips placed with pressure dressing. Sponge, lap, instrument and needle counts x3 were normal. Patient tolerated the procedure well and was taken to recovery room stable. Findings: Viable female infant, APGARS 8/9 and weight 3060g. Normal uterine size with cavity with fragments of tissue with amnion adherent in certain area of lower uterine segment, normal tubes and ovaries bilaterally. Umbilical artery gas pH 7.3 and BE -3.7. Infant frebrile at 103 per Peds report Pt given cytotec 1000mcg per rectum and repeat H/H to be done in recovery room due to extensive hemorrhage. Pt also to receive amp/gent/clinda until 24hrs afebrile postop, estimated 48hrs from delivery - A at 1 minute: 8 at 5 minutes: 9 Infant Gender: Female (wt 3060g)
[2021-02-21 07:40] LABS: Hematocrit 34.5 % (30.3-42.9); Hemoglobin 11.8 gm/dl (10.1-14.3); Mean Corpuscular HGB Conc 34 % (30-34); Mean Corpuscular Volume 86 fl (79-97); Platelet Count 213 K/mm3 (140-440); Red Cell Distribution Width 14.1 % (13.2-15.2)
[2021-02-21] MEDS ORDERED: miSOPROStol 200 MCG TAB PR SCH (08:25)
[2021-02-21] MEDS ORDERED: KETOROLAC 30 MG/1 ML INJ IV PRN (08:30)
[2021-02-21] MEDS ORDERED: LANOLIN/ZINC/DIMETHICONE (LANSINOH) 7 GM TP PRN (08:30)
[2021-02-21] MEDS ORDERED: NALOXONE 0.4 MG/1 ML INJ IV PRN (08:30)
[2021-02-21] MEDS ORDERED: MORPHINE 4 MG/1 ML INJ IV PRN (08:30)
[2021-02-21] MEDS ORDERED: WITCH HAZEL/ GLYCERIN PAD TP PRN (09:00)
[2021-02-21] MEDS ORDERED: SIMETHICONE 80 MG CHEW TAB PO PRN (09:00)
[2021-02-21] MEDS: AMPICILLIN/NS 2 GM/100 ML 2 GM/100 ML BAG IV SCH ×3 (10:00→21:45)
[2021-02-21] MEDS: PRENATAL VIT27-FE FUMARATE-FOLIC ACID VIT TAB PO SCH (10:01)
[2021-02-21] MEDS: FERROUS SULFATE 325 MG TAB PO SCH (10:01)
[2021-02-21] MEDS: SODIUM CHLORIDE 0.9% IV SCH (14:00)
[2021-02-21] MEDS: GENTAMICIN IV SCH (14:00)
[2021-02-21] MEDS ORDERED: PROMETHAZINE 25 MG RECT SUPP PR ONE (14:08)
--- NOTE | 2021-02-21 17:04 | Post Anesthesia Evaluation ---
- Post Anesthesia Evaluation Patient Participated: Yes Airway Patent: Yes Stable Respiratory Function: Yes Nausea/Vomiting: No Temp > 96.8F: Yes Pain Manageable: Yes Adequeate Hydration: Yes Anesthesia Complications: No Block Receding Appropriately: Yes
[2021-02-21 19:22] LABS: Hematocrit 32.7 % (30.3-42.9); Hemoglobin 10.9 gm/dl (10.1-14.3)
[2021-02-21] MEDS: oxyCODONE /ACETAMINOPHEN 5-325MG TAB PO PRN (21:56)
[2021-02-21] MEDS ORDERED: SENNOSIDES 8.6 MG TAB PO PRN (22:00)
[2021-02-21] MEDS ORDERED: MAGNESIUM HYDROXIDE (MOM) ORAL LIQD UDC PO PRN (22:00)
[2021-02-22] MEDS: oxyCODONE /ACETAMINOPHEN 5-325MG TAB PO PRN (03:54)
[2021-02-22] MEDS: AMPICILLIN/NS 2 GM/100 ML 2 GM/100 ML BAG IV SCH ×3 (03:55→16:17)
[2021-02-22] MEDS: FERROUS SULFATE 325 MG TAB PO SCH (09:17)
[2021-02-22] MEDS: PRENATAL VIT27-FE FUMARATE-FOLIC ACID VIT TAB PO SCH (09:17)
[2021-02-22] MEDS: IBUPROFEN 800 MG TAB PO PRN ×2 (10:56→16:14)
--- NOTE | 2021-02-22 12:33 | Progress Note ---
Assessment and Plan A: /postop day 1 S/P primary LTCS. Anemia. P: Repeat CBC. Continue oral iron supplementation. Subjective - Subjective Date of service: 02/22/21 Principal diagnosis: day 1 S/P primary LTCS Interval history: Repeat CBC pending. Patient is receiving IV antibiotics. Patient is receiving oral iron for anemia. Patient reports: appetite normal, voiding normally, pain well controlled, flatus, ambulating normally, no dizzy ambulation, no nauseated [place]: doing well Objective - Vital Signs Latest vital signs: Vital Signs Temp Pulse Resp BP Pulse Ox Pulse Ox 02/22/21 07:54 99 02/22/21 07:52 97.3 F L 95 H 18 125/86 100 02/22/21 04:45 97.8 F 99 H 18 112/71 97 02/22/21 03:54 18 02/22/21 00:08 97.4 F L 74 20 116/77 02/21/21 21:56 18 02/21/21 20:26 98.9 F 97 H 20 112/69 98 02/21/21 20:15 98 02/21/21 16:20 100 02/21/21 15:44 98.4 F 89 19 128/73 99 Intake and Output 02/21/21 02/22/21 02/22/21 23:59 07:59 15:59 Intake Total 610 390 Output Total 2000 Balance -1390 390 Intake: IV 250 150 AMPICILLIN/NS 2 GM/100 ML 200 100 2 gm In 100 ml @ 100 mls /hr IV Q6H ERROL Rx#: [id number] CLEOCIN 900 MG/50 mL 900 50 50 mg In 50 ml @ 100 mls/hr IV Q8H ERROL Rx#:[id number] Oral 240 Intake, Free Water 360 Output: Urine 2000 Indwelling Catheter 900 Void 1100 Other: Total, Intake Amount 240 Total, Output Amount 500 # Voids Void 1 1 - Exam Cardiovascular: Present: Regular rate Lungs: Present: Clear to auscultation Abdomen: Present: normal appearance, soft, normal bowel sounds. Absent: distention, tenderness, guarding, rigidity Uterus: Present: normal, firm, fundal height below umbilicus. Absent: bogginess, tenderness Extremities: Present: normal. Absent: tenderness, edema Incision: Present: dry, dressed - Labs Labs: Abnormal lab results 02/22/21 Range/Units 07:38 Creatinine 0.5 L (0.6-1.2) mg/dL
[2021-02-22 13:49] LABS: Cord Art Bld Methemoglobin 0.6 mmHg; Cord Arterial Blood HCO3 20.4
[2021-02-22 13:50] LABS: Cord Art Bld Carbxyhemoglobin 1.2; Cord Venous Blood HCO3 21.5; Cord Venous Blood PO2 31.6
[2021-02-22 13:51] LABS: Cord Arterial Oxyhemoglobin 60.3; Cord Venous Oxyhemoglobin 76.8
[2021-02-22 14:20] LABS: Hematocrit 28.5 % (30.3-42.9); Hemoglobin 9.8 gm/dl (10.1-14.3); Mean Corpuscular HGB Conc 34 % (30-34); Mean Corpuscular Volume 86 fl (79-97); Platelet Count 244 K/mm3 (140-440); Red Blood Count 3.31 M/mm3 (3.65-5.03); Red Cell Distribution Width 14.9 % (13.2-15.2)
[2021-02-22] MEDS: SODIUM CHLORIDE 0.9% IV SCH (15:33)
[2021-02-22] MEDS: GENTAMICIN IV SCH (15:33)
--- NOTE | 2021-02-22 17:07 | Event Note ---
Date: 02/22/21 WBC 23,500. Mild tachycardia. Afebrile. Continue triple antibiotics. Blood culture and urine culture ordered. Consulted with Dr. Arthur re: this patient; informed him of all of the above.
[2021-02-22 21:48] LABS: Total Cells Counted 100
[2021-02-22 21:49] LABS: Anisocytosis 1+; Band Neutrophils # (Manual) 0.2 K/mm3; Giant Platelets Rare; Platelet Estimate Consistent w Auto
[2021-02-23] MEDS: IBUPROFEN 800 MG TAB PO PRN ×2 (01:25→17:45)
[2021-02-23] MEDS: LACTATED RINGERS 1,000 ML IV SCH (01:46)
[2021-02-23] MEDS: AMPICILLIN/NS 2 GM/100 ML 2 GM/100 ML BAG IV SCH ×2 (02:52→08:05)
[2021-02-23 09:15] LABS: Basophils % (Auto) 0.1 % (0.0-1.8); Eosinophils # (Auto) 0.1 K/mm3 (0.0-0.4); Eosinophils % (Auto) 0.9 % (0.0-4.3); Hematocrit 25.6 % (30.3-42.9); Hemoglobin 8.9 gm/dl (10.1-14.3); Lymphocytes # (Auto) 1.7 K/mm3 (1.2-5.4); Lymphocytes % (Auto) 11.9 % (13.4-35.0); Mean Corpuscular HGB Conc 35 % (30-34); Mean Corpuscular Volume 86 fl (79-97); Monocytes # (Auto) 0.7 K/mm3 (0.0-0.8); Monocytes % (Auto) 4.8 % (0.0-7.3); Platelet Count 221 K/mm3 (140-440); Red Blood Count 2.98 M/mm3 (3.65-5.03); Red Cell Distribution Width 14.4 % (13.2-15.2)
[2021-02-23] MEDS: PRENATAL VIT27-FE FUMARATE-FOLIC ACID VIT TAB PO SCH (09:19)
[2021-02-23] MEDS: FERROUS SULFATE 325 MG TAB PO SCH (09:19)
[2021-02-23] MEDS: oxyCODONE /ACETAMINOPHEN 5-325MG TAB PO PRN (09:20)
--- NOTE | 2021-02-23 09:25 | Progress Note ---
Assessment and Plan - Patient Problems (1) S/P Current Visit: Yes Status: Acute Plan to address problem: Meeting postoperative goals. Anticipate discharge in 24 to 48 hours. (2) Chorioamnionitis Current Visit: Yes Status: Acute Plan to address problem: Repeat CBC today to assess for white blood cell count. Consider discharge of antibiotics after assessing lab value. No evidence of persistent infection on exam today. Subjective - Subjective Date of service: 02/23/21 Principal diagnosis: day 2 S/P primary LTCS Interval history: Patient doing well and meeting goals. Doing well in the room. Denies fevers/chills. Patient reports: appetite normal, voiding normally, pain well controlled, flatus, bowel movement, ambulating normally : doing well Objective - Vital Signs Latest vital signs: Vital Signs Temp Pulse Resp BP Pulse Ox Pulse Ox 02/23/21 01:16 98.0 F 101 H 20 103/53 100 02/22/21 20:41 99 02/22/21 16:14 97.9 F 103 H 18 115/67 100 Intake and Output 02/22/21 02/23/21 02/23/21 23:59 07:59 15:59 Intake Total 150 340 Balance 150 340 Intake: IV 150 100 AMPICILLIN/NS 2 GM/100 ML 100 100 2 gm In 100 ml @ 100 mls /hr IV Q6H ERROL Rx#: [id number] CLEOCIN 900 MG/50 mL 900 50 mg In 50 ml @ 100 mls/hr IV Q8H ERROL Rx#:[id number] Oral 240 Other: Total, Intake Amount 240 # Voids Void 1 1 - Exam Abdomen: Present: normal appearance, soft, normal bowel sounds Uterus: Present: normal, firm, fundal height at umbilicus Extremities: Present: normal Incision: Present: dressed (rt reports RN to remove that, deferred) - Labs Labs: Abnormal lab results 02/22/21 02/23/21 Range/Units 13:36 08:51 WBC 23.5 H 14.0 H (4.5-11.0) K/mm3 RBC 3.31 L 2.98 L (3.65-5.03) M/mm3 Hgb 9.8 L 8.9 L (10.1-14.3) gm/dl Hct 28.5 L 25.6 L (30.3-42.9) % MCHC 35 H (30-34) % Lymph % (Auto) 11.9 L (13.4-35.0) % Seg Neutrophils % 82.3 H (40.0-70.0) % Seg Neuts % (Manual) 87.0 H (40.0-70.0) % Lymphocytes % (Manual) 10.0 L (13.4-35.0) % Seg Neutrophils # 11.6 H (1.8-7.7) K/mm3 Seg Neutrophils # Man 20.4 H (1.8-7.7) K/mm3
[2021-02-23 09:33] LABS: Alanine Aminotransferase 13 units/L (7-56); Albumin 2.9 g/dL (3.9-5); Blood Urea Nitrogen 10 mg/dL (7-17); Calcium 8.6 mg/dL (8.4-10.2); Hemolysis Index 5
[2021-02-23 09:44] LABS: BUN/Creatinine Ratio 17
[2021-02-23] MEDS: SODIUM CHLORIDE 0.9% IV SCH (11:55)
[2021-02-23] MEDS: GENTAMICIN IV SCH (11:55)
--- NOTE | 2021-02-24 15:58 | Progress Note ---
Assessment and Plan A: /postop day 3 S/P repeat LTCS. Leukocytosis, trending downward. Anemia. P: Continue iron supplementation. Await urine culture results. Anticipate discharge later today or tomorrow AM. Subjective - Subjective Date of service: 02/24/21 Principal diagnosis: day 3 S/P primary LTCS Interval history: WBC trending down. Antibiotics have already been stopped. Blood cultures negative. Urine culture still pending. Patient reports: appetite normal, voiding normally, pain well controlled, flatus, ambulating normally, no dizzy ambulation, no nauseated [place]: doing well Objective - Vital Signs Latest vital signs: Vital Signs Temp Pulse Resp BP Pulse Ox Pulse Ox 02/24/21 08:42 98 02/24/21 07:58 98.7 F 103 H 20 107/65 99 02/24/21 00:53 98.6 F 106 H 20 110/59 100 02/23/21 20:39 98 02/23/21 16:56 98.2 F 111 H 20 109/74 100 Intake and Output 02/23/21 02/24/21 02/24/21 23:59 07:59 15:59 Intake Total 840 600 240 Balance 840 600 240 Intake: Oral 840 600 240 Other: Total, Intake Amount 240 240 120 # Voids Void 1 1 1 - Exam Abdomen: Present: normal appearance, soft. Absent: distention, tenderness, guarding, rigidity Uterus: Present: normal, firm, fundal height below umbilicus. Absent: bogginess, tenderness Extremities: Present: normal, edema (pedal edema bilaterally). Absent: tenderness Incision: Present: normal, dry, intact
[2021-02-24] MEDS: PRENATAL VIT27-FE FUMARATE-FOLIC ACID VIT TAB PO SCH (19:40)
[2021-02-24] MEDS: FERROUS SULFATE 325 MG TAB PO SCH (19:40)
[2021-02-25] MEDS: IBUPROFEN 800 MG TAB PO PRN (04:54)
--- NOTE | 2021-02-25 07:12 | Event Note ---
Date: 02/25/21 Called lab and urinalysis expected to result this morning. Repeat CBC ordered. If WBC still trending downward will be able to be discharged later today.
[2021-02-25 10:21] LABS: Hematocrit 27.6 % (30.3-42.9); Hemoglobin 9.3 gm/dl (10.1-14.3); Mean Corpuscular HGB Conc 34 % (30-34); Mean Corpuscular Volume 86 fl (79-97); Platelet Count 299 K/mm3 (140-440); Red Blood Count 3.21 M/mm3 (3.65-5.03); Red Cell Distribution Width 14.1 % (13.2-15.2)
--- NOTE | 2021-02-25 10:43 | Progress Note ---
Assessment and Plan - Patient Problems (1) S/P Current Visit: Yes Status: Acute Plan to address problem: Meeting postoperative goals. Baby doing well in the room. --Anticipate discharge home (2) Chorioamnionitis Current Visit: Yes Status: Acute Plan to address problem: WBC downtrending. S/p Abx. Ok to discontinue. Subjective - Subjective Date of service: 02/25/21 Principal diagnosis: day 4 S/P primary LTCS Interval history: Patient doing well and meeting goals. Doing well in the room. Denies fevers/chills. Patient reports: appetite normal, voiding normally, pain well controlled, flatus [place]: doing well Objective - Vital Signs Latest vital signs: Vital Signs Temp Pulse Resp BP Pulse Ox Pulse Ox 02/25/21 07:25 92 H 123/83 100 02/25/21 00:55 98.1 F 93 H 20 109/70 97 02/24/21 22:45 100 02/24/21 18:20 98 02/24/21 16:49 98 02/24/21 16:28 99.2 F 101 H 20 112/77 99 02/24/21 14:16 98 02/24/21 12:35 98 Intake and Output 02/24/21 02/25/21 02/25/21 23:59 07:59 15:59 Intake Total 680 120 Balance 680 120 Intake: Oral 680 120 Other: Total, Intake Amount 240 120 Voiding Method Toilet # Voids Void 1 1 - Exam Abdomen: Present: normal appearance, soft, normal bowel sounds Uterus: Present: firm, fundal height at umbilicus Extremities: Present: normal Incision: Present: normal
--- NOTE | 2021-02-25 10:46 | Discharge Summary ---
Providers - Providers Date of Admission: 02/19/21 19:47 Date of discharge: 02/25/21 Attending physician: BRITTANI FARRIS MD Primary care physician: BRITTANI FARRIS MD Hospitalization Reason for admission: induction of labor Delivery: Procedure: section, primary low transverse Episiotomy: none Laceration: none Incision: normal complications: pelvic infection (chorioamnioitis) Discharge diagnosis: IUP at term delivered baby: female Hospital course: Patient admitted for IOL, however failed 2/2 failure to progress and chorioamnionitis, s/p Abx, discharged in good condition on POD4. Meeting goals and discharged home. Condition at discharge: Good Disposition: 01 HOME / SELF CARE / HOMELESS - Discharge Diagnoses (1) S/P Status: Acute (2) Chorioamnionitis Status: Acute Plan - Discharge Medications Prescriptions: Ibuprofen [Motrin] 800 mg PO Q8HR PRN 21 Days #40 tablet PRN Reason: Pain, Mild (1-3) oxyCODONE /ACETAMINOPHEN [Percocet 5/325] 1 tab PO Q4HR PRN 21 Days #30 tab PRN Reason: Pain, Moderate (4-6) - Provider Discharge Summary Activity: no sex for 6 weeks, no heavy lifting 4 weeks, no strenuous exercise Diet: routine Instructions: routine Additional instructions: [] Smoking cessation referral if applicable(refer to patient education folder for contact #) [] Refer to [facility] Book[facility] Call your doctor immediately for: * Fever > 100.5 * Heavy vaginal bleeding ( >1 pad per hour) * Severe persistent headache * Shortness of breath * Reddened, hot, painful area to leg or breast * Drainage or odor from incision. * Keep incision clean and dry at all times and follow doctor's instructions regarding bathing/showering - Follow up plan Follow up: MAXIME YODER MD [Staff Physician] - 14 Days Forms: [facility] Discharge Summary
[2021-02-25 15:39] VITALS: BP 110/70
[2021-02-25] MEDS: oxyCODONE /ACETAMINOPHEN 5-325MG TAB PO PRN (16:10)
[2021-02-25] MEDS: FERROUS SULFATE 325 MG TAB PO SCH (16:10)
[2021-02-25 17:18] LABS: Myelocytes # (Manual) 0.1 K/mm3; Platelet Estimate Consistent w Auto; RBC Morphology Normal; Total Cells Counted 100
== END 2021-02-25 16:45 | disposition home or self-care (01) | DRG 765 ==
LOC: TRG 15:35 → LD 15:36 → TRG 19:47 → OB 02-21 08:38
PROVIDERS: ADMIT Obstetrics & Gynecology; ATTEND Obstetrics & Gynecology
PROC: 3E0DXGC Introduction of Other Therapeutic Substance into Mouth and Pharynx, External Approach (ICD-10-PCS; 2021-02-19)
PROC: 10D00Z1 Extraction of Products of Conception, Low, Open Approach (ICD-10-PCS; principal; 2021-02-21)
PROC: 3E0T3BZ Introduction of Anesthetic Agent into Peripheral Nerves and Plexi, Percutaneous Approach (ICD-10-PCS; 2021-02-21)
DX: O76 Abnormality in fetal heart rate and rhythm complicating labor and delivery (principal); O41.1230 Chorioamnionitis, third trimester, not applicable or unspecified; O36.5930 Maternal care for other known or suspected poor fetal growth, third trimester, not applicable or unspecified; Z3A.39 39 weeks gestation of pregnancy; Z37.0 Single live birth; Z20.822 Contact with and (suspected) exposure to COVID-19; O72.1 Other immediate postpartum hemorrhage; O61.9 Failed induction of labor, unspecified; O90.81 Anemia of the puerperium; D64.9 Anemia, unspecified; D72.829 Elevated white blood cell count, unspecified; O99.13 Other diseases of the blood and blood-forming organs and certain disorders involving the immune mechanism complicating the puerperium
CPT/HCPCS: 36415; 59025; 76815; 80053; 82565; 82803; 85007; 85014; 85018; 85025; 85027; 86850; 86900; 86901; 87040; 87086; 88307; 99211; G0378; G0463; J0290; J0595; J0690; J1100; J1580; J2300; J2405; J2590; J3490; J7120; U0003